=== PATIENT | male | born 1990 | race African-American/Black ===

== ENCOUNTER 2018-07-15 09:04 | Outpatient (CLI) | payer OTHER ==
[2018-07-15 09:22] LABS: eGFR (Non-African) > 60
[2018-07-15 09:30] LABS: MEAN CORPUSCULAR HEMOGLOBIN 30.7 pg (28.0-34.0)
[2018-07-15 09:31] LABS: BASOPHILS % 3 % (0-2); EOSINOPHILS % 2 % (0-7); MONOCYTES % 4 % (0-11); SEGMENTED NEUTROPHILS % 59 % (39-79)
== END 2018-07-15 09:06 ==
LOC: LAB 09:04
PROVIDERS: ATTEND General Practice
DX: R10.9 Unspecified abdominal pain (principal)
CPT/HCPCS: 36415; 80053; 85025